=== PATIENT | male | born 1990 | race Caucasian/White ===

== ENCOUNTER 2024-12-04 20:29 | Emergency (ER) | payer BC ==
[~2024-12-04] VITALS: Ht 195.6 cm; Wt 97.5 kg
[2024-12-04 20:44] VITALS: BP 114/51; TEMP 98.4
[2024-12-04] MEDS ORDERED: ERYT3.5O9 EACHEYE (21:12)
[2024-12-04 21:24] VITALS: O2SAT 98
== END 2024-12-04 21:24 | disposition home or self-care (01) ==
LOC: ER 20:34
DX: S90.32XA Contusion of left foot, initial encounter (principal); H00.025 Hordeolum internum left lower eyelid; W22.09XA Striking against other stationary object, initial encounter; Y93.89 Activity, other specified; Y92.89 Other specified places as the place of occurrence of the external cause; Y99.8 Other external cause status